=== PATIENT | male | born 1995 | race Caucasian/White ===

== ENCOUNTER 2017-03-28 13:25 | Emergency (ER) ==
[2017-03-28 13:30] VITALS: BP 133/81; TEMP 97.2; BMI 22.4
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
== END 2017-03-28 15:54 | disposition home or self-care (01) ==
LOC: ED 13:25
DX: K02.9 Dental caries, unspecified (principal)
CPT/HCPCS: 99282